=== PATIENT | male | born 1995 | race African-American/Black ===

== ENCOUNTER 2019-11-22 22:01 | Emergency (ER) | payer BC, SELFPAY ==
[2019-11-22 22:11] VITALS: BP 119/68; PULSE 111; RESP 18; TEMP 39.2; O2SAT 100
--- NOTE | 2019-11-22 22:37 | ED.FEVER ---
HPI - Fever General Chief Complaint: Fever Stated Complaint: Bodyaches, fever Time Seen by Provider: 11/22/19 22:19 Source: patient Mode of arrival: ambulatory Limitations: no limitations History of Present Illness HPI Narrative: 24-year-old male Essentially healthy Complains of a 1 day history of fever and muscle aches Sore throat, painful swallowing Occasional cough which is dry No GI or symptoms Moderate frontal headache No ill contacts and he is a non-smoker MD elicited complaint: fever Onset (ago): day(s) Exacerbating factors: nothing Relieving factors: nothing Associated symptoms: sore throat Related Data Allergies Allergy/AdvReac Type Severity Reaction Status Date / Time No Known Allergies Allergy Verified 11/22/19 22:13 Review of Systems Constitutional: Constitutional: Reports chills and Reports fever(s) Eyes: Eyes: Denies photophobia ENT: Denies nasal congestion and Reports sore throat Respiratory: Respiratory: Denies chest congestion, Reports cough and Denies dyspnea Gastrointestinal: Gastrointestinal: Denies constipation, Denies diarrhea and Denies vomiting Genitourinary: Genitourinary: Denies dysuria and Denies urinary frequency Musculoskeletal: Musculoskeletal: Reports back pain and Reports myalgias Neurologic: Denies focal weakness and Denies numbness PMFSH Social History Social History Gender identity (if verbalized by the patient): Male Exam Const: General: alert Orientation/consciousness: patient oriented x3 HENMT: Other: There is erythema and exudate to the posterior oropharynx bilaterally no mass-effect no deviation of the uvula Eyes: Conjunctivae: conjunctivae normal EOM: EOMs intact bilaterally Neck: Neck: no lymphadenopathy and no meningeal signs Resp: Effort & Inspection: normal respiratory effort Auscultation: clear to auscultation bilaterally Cardio: Rate: regular rate Rhythm: regular rhythm GI: GI Palp: Yes Soft to palpation and No Tenderness to palpation present (GI) : General: Yes no CVA tenderness Skin: General skin exam: normal color Rashes: no rashes Neuro: General: patient oriented x3, moves all extremities and no meningeal signs Psych: Mental Status: mental status grossly normal Course Vital Signs Vital signs: Vital Signs Temperature 39.2 C H 11/22/19 22:11 Pulse Rate 111 H 11/22/19 22:11 Respiratory Rate 18 11/22/19 22:11 Blood Pressure 119/68 11/22/19 22:11 Pulse Oximetry 100 11/22/19 22:11 Temperature 39.2 C H 11/22/19 22:11 Pulse Rate 111 H 11/22/19 22:11 Respiratory Rate 18 11/22/19 22:11 Blood Pressure 119/68 11/22/19 22:11 Pulse Oximetry 100 11/22/19 22:11 MDM - Fever Lab Data Labs: Lab Results 11/22/19 Range/Units 22:50 Monoscreen Pending Influenza A Screen Negative Reference Range: Negative Influenza B Screen Negative Reference Range: Negative Strep Screen Positive Group A Strep *(Reference Range: Negative)* Discharge Plan Discharge Clinical Impression: Acute streptococcal pharyngitis Patient Disposition: Home, Self-Care Condition: Stable Instructions: Strep Throat (ED) Follow-up/Referrals: PHYSICIAN,BATTER SCALER [Primary Care Provider] - Shant Darby MD [Physician] - (as needed)
[2019-11-22] MEDS: LACTATED RINGERS 1,000 ML 999 ML IV CONT (22:53)
[2019-11-22] MEDS: PENICILLIN G BENZATHINE 1,200,000 UNITS/2 ML SYRINGE 1200000 UNITS IM (22:54)
[2019-11-22 23:56] VITALS: BP 110/68; PULSE 100; RESP 20; O2SAT 98
[2019-11-23 06:51] LABS: Monoscreen Negative (Negative); Negative Monotest Control Negative (Negative); Positive Monotest Control Positive (Positive)
== END 2019-11-22 23:58 | disposition home or self-care (01) ==
PROVIDERS: Emergency Provider Emergency Medicine
DX: J02.0 Streptococcal pharyngitis (principal)
CPT/HCPCS: 36415; 86308; 87804; 87880; 96361; 96374; 96375; 99284; J0561; J1100; J7120